=== PATIENT | male | born 1970 | race Caucasian/White ===

== ENCOUNTER 2022-08-24 11:04 | Emergency (ER) | payer MEDICAID ==
[2022-08-24] MEDS ORDERED: PHENobarbital 65 MG/ML VIAL IV STA (11:22)
[2022-08-24] MEDS ORDERED: DROPERIDOL 5 MG/2 ML VIAL IVP STA (11:23)
--- NOTE | 2022-08-24 13:46 | ED Physician Documentation ---
History of Present Illness - Stated complaint Stated Complaint: HIGH BP - Chief complaint Chief Complaint: General - History obtained from History obtained from: Patient, EMS - Additonal information Additional information: The patient is brought to the emergency department by EMS for chief complaint of high blood pressure and rejected by [facility]. The patient was transferred from [place] ostensibly to be sent to [facility], but when he got there, medics report that they had had one blood pressure reading in which the systolic was over 200 and [facility] that they would not take the patient. All of the prior readings have been in the 160s systolic. The patient has no symptoms other than he states he is feeling shaky and as though he is withdrawing after his last drink 2 days ago. He is not sure if he was given anything for withdrawal at [place]. He normally does take amlodipine for his blood pressure is not sure if he has it. He denies chest pain, shortness of breath, focal neurologic deficits, or hallucinations. He has been making urine copiously on the way here. The pt has a recent h/o SAH, for which he was admitted at , treated, and underwent some inpatient rehab, though he has some residual gait deficits. PD PAST MEDICAL HISTORY - Present Medications Home Medications: Ambulatory Orders Medication Instructions Recorded Confirmed Sennosides/Docusate Sodium 1 tab PO DAILY 08/24/22 08/24/22 [Docuzen 8.6-50 mg Tablet] amLODIPine [Norvasc] 5 mg PO DAILY 08/24/22 08/24/22 PD ED PE NORMAL - Vitals Vital signs reviewed: Yes - General General: Alert and oriented X 3, Well developed/nourished, Other (moderate anxiety, otherwise NAD) - HEENT HEENT: Atraumatic, PERRL, EOMI, Moist mucous membranes - Neck Neck: Supple, no meningeal sign - Cardiac Cardiac: RRR, No murmur, Strong equal pulses - Respiratory Respiratory: No respiratory distress, Clear bilaterally - Abdomen Abdomen: Soft, Non tender, Non distended - Derm Derm: Normal color, Warm and dry, No rash, Other - Extremities Extremities: No deformity - Neuro Neuro: Alert and oriented X 3, Other (Moderate tremors, otherwise grossly intact) - Psych Psych: Normal affect, Other (moderate anxiety, ) Results - Vitals Vitals: Vital Signs - 24 hr 08/24/22 08/24/22 13:15 14:13 Heart Rate 89 99 Respiratory 16 16 Rate Blood Pressure 196/105 H O2 Saturation 97 99 Oxygen O2 Source Room air PD Medical Decision Making - ED course Complexity details: reviewed old records, reviewed results, re-evaluated patient, considered differential, d/w patient ED course: The pt appeared anxious and withdrawing. He was given IV phenobarbital and droperidol, with symptomatic improvement. His BP also improved over the course of his stay, and never was above 200 systolic. He showed no signs of DT, but rather, uncomplicated alcohol withdrawal. Nonetheless, [facility] stated they would not take him, and that they had been misled as to his condition. The pt wished to go home, and a friend did come to pick him up. We have discussed the usual indications for return. Departure - Departure Disposition: 01 Home, Self Care Clinical Impression: Asymptomatic hypertension Alcohol withdrawal Qualifiers: Complication of substance-induced condition: uncomplicated Qualified Code(s): F10.930 - Alcohol use, unspecified with withdrawal, uncomplicated Condition: Stable Instructions: ED Withdrawal Alcohol, ED HTN Established Comments: You have been treated for alcohol withdrawal in the emergency department today. You have had some high blood pressure readings but do not have any symptoms and as such, or not in an emergent state related to your high blood pressure today. You will need to follow-up with your doctor to discuss whether you are on the right medication regimen for your pressure. However, it is very important that you do continue to pursue help with your alcohol abuse, as well. Unfortunately, I to has declined acceptance to their facility after all, so we will have to continue working on this as an outpatient. Discharge Date/Time: 08/24/22 14:14
[2022-08-24 14:14] VITALS: BP 196/105
== END 2022-08-24 14:14 | disposition home or self-care (01) ==
LOC: ED 11:04
DX: I10 Essential (primary) hypertension (principal); F10.930 Alcohol use, unspecified with withdrawal, uncomplicated
CPT/HCPCS: 96374; 99283